=== PATIENT | female | born 1950 | race Hispanic/Latino ===

== ENCOUNTER 2017-11-29 00:21 | Inpatient (IN) | payer MEDICAID, OTHER ==
[~2017-11-29] VITALS: Ht 154.9 cm; Wt 73.3 kg
[~2017-11-29 00:21] MED LIST: AMOX500T2 PO; ATOR10TA69 PO; CARV12.511 PO; CHOL500050 PO; CLON0.2T PO; FOSI40TA2 PO; FURO20TA4 PO; GLIP10TA9 PO
[2017-11-29] MEDS ORDERED: NITROGLYCERIN 1GM/1 INCH PACKET TD ONE (01:00)
[2017-11-29] MEDS ORDERED: FUROSEMIDE 10 MG/ML 2ML VIAL ONE ×2 (01:00→08:03)
[2017-11-29 01:03] LABS: BASOPHILS % (AUTO) 0.6 % (0.0-5.0); EOSINOPHILS % (AUTO) 0.1 % (0.0-8.0); HEMATOCRIT 34.4 % (36-48); LYMPHOCYTES % (AUTO) 3.8 % (21.0-51.0); MEAN CORPUSCULAR HEMOGLOBIN 29.3 pg (27.0-33.0); MEAN CORPUSCULAR HGB CONC 32.7 g/dL (32.0-36.0); MEAN CORPUSCULAR VOLUME 89.7 fL (79-99); MONOCYTES % (AUTO) 3.9 % (3.0-13.0); NEUTROPHILS % (AUTO) 91.6 % (40.0-77.0); PLATELET COUNT (AUTO) 252 K/uL (130-400); RED BLOOD CELL COUNT(AUTO) 3.84 MIL/uL (4.00-5.50); RED CELL DISTRIBUTION WIDTH 13.9 % (11.0-15.5)
[2017-11-29 01:16] LABS: CREATININE 3.1 mg/dL (0.5-1.5)
[2017-11-29 01:37] LABS: BILIRUBIN,TOTAL 0.3 mg/dL (0.2-1.0); TOTAL PROTEIN, SERUM 6.3 g/dL (6.0-8.3)
[2017-11-29] MEDS ORDERED: CEFTRIAXONE SODIUM 1 GM ONE (01:41)
[2017-11-29 01:43] LABS: CREATINE KINASE MB 5.2 ng/mL (0.5-3.6)
[2017-11-29] MEDS ORDERED: ONDANSETRON HCL 4 MG/2 ML VIAL IV PRN (03:15)
[2017-11-29] MEDS: CEFTRIAXONE 1GM/D5W 50ML 50 ML IV SCH (03:15)
[2017-11-29] MEDS: AZITHROMYCIN 500MG+NS 250ML 250 ML IV SCH (03:15)
[2017-11-29] MEDS ORDERED: HYDRALAZINE HCL 20 MG/ML VIAL ONE ×3 (05:18→20:53)
[2017-11-29] MEDS ORDERED: AZITHROMYCIN 500MG+NS 250ML 250 ML IV ONE (05:18)
[2017-11-29] MEDS ORDERED: IPRATROPIUM/ALBUTEROL SULFATE 3 ML SOLUTION IH ONE ×2 (06:02→12:04)
[2017-11-29] MEDS: IPRATROPIUM/ALBUTEROL SULFATE 3 ML SOLUTION IH SCH ×3 (06:08→18:28)
[2017-11-29 06:20] LABS: CREATINE KINASE MB 5.3 ng/mL (0.5-3.6); TROPONIN I 0.18 ng/mL (0.00-0.06)
[2017-11-29] MEDS ORDERED: ONDANSETRON HCL 4 MG/2 ML VIAL ONE (08:02)
[2017-11-29] MEDS ORDERED: PANTOPRAZOLE SODIUM 40 MG TABLET.DR PO ONE (08:03)
[2017-11-29] MEDS: PANTOPRAZOLE SODIUM 40 MG TABLET.DR PO SCH (09:00)
[2017-11-29] MEDS: FUROSEMIDE 10 MG/ML 2ML VIAL IV SCH (09:00)
[2017-11-29 10:18] LABS: CREATINE KINASE MB 4.7 ng/mL (0.5-3.6); TROPONIN I 0.2 ng/mL (0.00-0.06)
[2017-11-29] MEDS ORDERED: ACETAMINOPHEN 325 MG TAB ONE ×2 (12:26→20:54)
[2017-11-29 21:57] VITALS: BP 158/68
[2017-11-30] VITALS (7 sets, daily range): BP systolic 141–175; BP diastolic 57–79
[2017-11-30] MEDS: IPRATROPIUM/ALBUTEROL SULFATE 3 ML SOLUTION IH SCH ×4 (00:03→19:07)
[2017-11-30] MEDS ORDERED: HYDR-4153 PO (00:27)
[2017-11-30] MEDS ORDERED: CEFTRIAXONE SODIUM 1 GM ONE (02:05)
[2017-11-30] MEDS: AZITHROMYCIN 500MG+NS 250ML 250 ML IV SCH (02:43)
[2017-11-30] MEDS: CEFTRIAXONE 1GM/D5W 50ML 50 ML IV SCH (02:44)
[2017-11-30 04:43] LABS: CREATINE KINASE MB 2.1 ng/mL (0.5-3.6)
[2017-11-30] MEDS: FUROSEMIDE 10 MG/ML 2ML VIAL IV SCH (11:31)
[2017-11-30] MEDS: PANTOPRAZOLE SODIUM 40 MG TABLET.DR PO SCH (11:32)
[2017-11-30] MEDS ORDERED: DEXTROSE 50%-WATER 50 ML DISP.SYRIN IV PRN (18:00)
[2017-11-30] MEDS ORDERED: GLUCAGON 1MG KIT 1 MG ML IM PRN (18:00)
[2017-11-30] MEDS: INSULIN HUMULIN R 100 UNIT/ML 3ML SQ SCH (21:57)
[2017-11-30] MEDS: HYDRALAZINE HCL 20 MG/ML VIAL IV PRN (23:51)
[2017-12-01] MEDS: IPRATROPIUM/ALBUTEROL SULFATE 3 ML SOLUTION IH SCH ×5 (00:36→23:32)
[2017-12-01] MEDS: CEFTRIAXONE SODIUM 1 GM IVP SCH (02:57)
[2017-12-01] MEDS: AZITHROMYCIN 500MG+NS 250ML 250 ML IV SCH (02:58)
[2017-12-01] MEDS: ACETAMINOPHEN 325 MG TAB PO PRN (03:35)
[2017-12-01 03:47] LABS: HEMATOCRIT 29.2 % (36-48); MEAN CORPUSCULAR HEMOGLOBIN 29.1 pg (27.0-33.0); MEAN CORPUSCULAR HGB CONC 33.1 g/dL (32.0-36.0); MEAN CORPUSCULAR VOLUME 88.1 fL (79-99); PLATELET COUNT (AUTO) 240 K/uL (130-400); RED BLOOD CELL COUNT(AUTO) 3.32 MIL/uL (4.00-5.50); RED CELL DISTRIBUTION WIDTH 13.5 % (11.0-15.5); WHITE BLOOD COUNT (AUTO) 5.4 K/uL (4.8-10.8)
[2017-12-01 03:51] VITALS: BP 154/95
[2017-12-01 04:17] LABS: POTASSIUM 4.5 mmol/L (3.5-5.1)
[2017-12-01 04:46] LABS: BAND NEUTROPHILS % (MANUAL) 3 % (0-2); EOSINOPHILS % (MANUAL) 2 % (1-6); LYMPHOCYTES % (MANUAL) 22 % (22-44); MAN.DIFF COMMENT-IMPRESSION MANUAL DIFFERENTIAL; MONOCYTES % (MANUAL) 2 % (2-9); PLATELET MORPHOLOGY COMMENT ADEQUATE; SEGMENTED NEUTROPHILS % 71 % (40-70)
[2017-12-01] MEDS: INSULIN HUMULIN R 100 UNIT/ML 3ML SQ SCH ×4 (05:55→21:47)
[2017-12-01 07:00] VITALS: BP 165/71
[2017-12-01] MEDS: PANTOPRAZOLE SODIUM 40 MG TABLET.DR PO SCH (10:08)
[2017-12-01] MEDS: FUROSEMIDE 10 MG/ML 2ML VIAL IV SCH (10:09)
[2017-12-01 11:00] VITALS: BP 143/67
[2017-12-01 15:41] VITALS: BP 208/80
[2017-12-01] MEDS: HYDRALAZINE HCL 20 MG/ML VIAL IV PRN ×2 (16:56→21:37)
[2017-12-01] MEDS: GUAIFENESIN SUGAR-FREE 100 MG/5 ML UDCUP PO PRN (17:04)
[2017-12-01 19:58] VITALS: BP 167/74
[2017-12-02] VITALS (7 sets, daily range): BP systolic 150–184; BP diastolic 56–83
[2017-12-02] MEDS: CEFTRIAXONE SODIUM 1 GM IVP SCH (02:16)
[2017-12-02] MEDS: AZITHROMYCIN 500MG+NS 250ML 250 ML IV SCH (02:16)
[2017-12-02 03:51] LABS: MEAN CORPUSCULAR HEMOGLOBIN 28.9 pg (27.0-33.0); MEAN CORPUSCULAR HGB CONC 33.1 g/dL (32.0-36.0); MEAN CORPUSCULAR VOLUME 87.5 fL (79-99); PLATELET COUNT (AUTO) 236 K/uL (130-400); RED BLOOD CELL COUNT(AUTO) 3.32 MIL/uL (4.00-5.50); RED CELL DISTRIBUTION WIDTH 13.8 % (11.0-15.5); WHITE BLOOD COUNT (AUTO) 4.8 K/uL (4.8-10.8)
[2017-12-02 04:13] LABS: ALBUMIN 1.5 g/dL (3.5-5.0); BILIRUBIN,TOTAL 0.2 mg/dL (0.2-1.0); CREATININE 4.2 mg/dL (0.5-1.5); POTASSIUM 4.9 mmol/L (3.5-5.1); TOTAL PROTEIN, SERUM 5.4 g/dL (6.0-8.3)
[2017-12-02] MEDS: ACETAMINOPHEN 325 MG TAB PO PRN (04:30)
[2017-12-02] MEDS: IPRATROPIUM/ALBUTEROL SULFATE 3 ML SOLUTION IH SCH ×4 (06:16→23:49)
[2017-12-02] MEDS: INSULIN HUMULIN R 100 UNIT/ML 3ML SQ SCH ×4 (06:18→21:00)
[2017-12-02] MEDS: HYDRALAZINE HCL 20 MG/ML VIAL IV PRN ×3 (08:35→23:51)
[2017-12-02] MEDS: PANTOPRAZOLE SODIUM 40 MG TABLET.DR PO SCH (08:35)
[2017-12-02] MEDS: FUROSEMIDE 10 MG/ML 2ML VIAL IV SCH ×4 (08:36→22:07)
[2017-12-02] MEDS ORDERED: AMLODIPINE BESYLATE 5 MG TAB PO SCH (11:15)
[2017-12-02] MEDS: ATORVASTATIN CALCIUM 20 MG TABLET PO SCH (11:53)
[2017-12-02] MEDS: CLOPIDOGREL BISULFATE 75 MG TAB PO SCH (11:54)
[2017-12-02] MEDS: METOPROLOL TARTRATE 25 MG TAB PO SCH ×2 (12:05→22:05)
[2017-12-02 18:30] LABS: APPEARANCE,URINE Clear (CLEAR); BILIRUBIN,URINE Negative (NEGATIVE); COLOR,URINE Yellow (YELLOW); GLUCOSE, URINE (UA) 500 mg/dL (NEGATIVE); KETONES,URINE Negative (NEGATIVE); LEUKOCYTE ESTERASE ,URINE Negative (NEGATIVE); NITRATE,URINE Negative (NEGATIVE); OCCULT BLOOD,URINE Trace (NEGATIVE); PROTEIN,URINE >=1000 (NEGATIVE); UROBILINOGEN,URINE 0.2 mg/dL (0.2-1.0)
[2017-12-02 19:48] LABS: BACTERIA,URINE Rare /HPF (None Seen); RBC,URINE 0-1 /HPF (0-1); SQUAMOUS EPITHELIAL CELL,UR Rare /LPF (0-2); WBC,URINE 0-1 /HPF (0-1)
[2017-12-02 19:49] LABS: COARSE GRANULAR CASTS,URINE 0-2 /LPF (None Seen)
[2017-12-02] MEDS: GUAIFENESIN SUGAR-FREE 100 MG/5 ML UDCUP PO PRN (23:52)
[2017-12-03] VITALS (7 sets, daily range): BP systolic 116–168; BP diastolic 64–115
[2017-12-03] MEDS: AZITHROMYCIN 500MG+NS 250ML 250 ML IV SCH (02:31)
[2017-12-03] MEDS: CEFTRIAXONE SODIUM 1 GM IVP SCH (02:31)
[2017-12-03 04:18] LABS: HEMATOCRIT 30.5 % (36-48); MEAN CORPUSCULAR HEMOGLOBIN 29.2 pg (27.0-33.0); MEAN CORPUSCULAR HGB CONC 33.4 g/dL (32.0-36.0); MEAN CORPUSCULAR VOLUME 87.5 fL (79-99); PLATELET COUNT (AUTO) 288 K/uL (130-400); RED BLOOD CELL COUNT(AUTO) 3.48 MIL/uL (4.00-5.50); RED CELL DISTRIBUTION WIDTH 13.7 % (11.0-15.5); WHITE BLOOD COUNT (AUTO) 6.2 K/uL (4.8-10.8)
[2017-12-03 04:28] LABS: CREATININE 4.1 mg/dL (0.5-1.5); POTASSIUM 4.8 mmol/L (3.5-5.1)
[2017-12-03 04:39] LABS: % IRON SATURATION 25.5 % (22-44)
[2017-12-03 05:05] LABS: BAND NEUTROPHILS % (MANUAL) 2 % (0-2); BASOPHILS % (MANUAL) 1 % (0-2); EOSINOPHILS % (MANUAL) 4 % (1-6); LYMPHOCYTES % (MANUAL) 18 % (22-44); MAN.DIFF COMMENT-IMPRESSION MANUAL DIFFERENTIAL; MONOCYTES % (MANUAL) 8 % (2-9); PLATELET MORPHOLOGY COMMENT ADEQUATE; SEGMENTED NEUTROPHILS % 67 % (40-70)
[2017-12-03] MEDS ORDERED: SODIUM CHLORIDE 3% FOR INHALATION 4 ML/AMP VIAL.NEB IH ONE (06:09)
[2017-12-03] MEDS: INSULIN HUMULIN R 100 UNIT/ML 3ML SQ SCH ×3 (06:26→22:08)
[2017-12-03] MEDS: IPRATROPIUM/ALBUTEROL SULFATE 3 ML SOLUTION IH SCH ×3 (06:42→18:10)
[2017-12-03] MEDS: CLOPIDOGREL BISULFATE 75 MG TAB PO SCH (08:34)
[2017-12-03] MEDS: FOLIC ACID/VITAMIN B COMP W-C 1 MG CAPSULE PO SCH (08:34)
[2017-12-03] MEDS: METOPROLOL TARTRATE 25 MG TAB PO SCH ×2 (08:35→22:11)
[2017-12-03] MEDS: ATORVASTATIN CALCIUM 20 MG TABLET PO SCH (08:35)
[2017-12-03] MEDS: PANTOPRAZOLE SODIUM 40 MG TABLET.DR PO SCH (08:35)
[2017-12-03] MEDS: FUROSEMIDE 10 MG/ML 2ML VIAL IV SCH ×4 (08:36→23:30)
[2017-12-03] MEDS: GUAIFENESIN SUGAR-FREE 100 MG/5 ML UDCUP PO PRN (22:11)
[2017-12-03] MEDS: AMLODIPINE BESYLATE 5 MG TAB PO SCH (22:11)
[2017-12-03] MEDS: ACETAMINOPHEN 325 MG TAB PO PRN (22:28)
[2017-12-04] MEDS: IPRATROPIUM/ALBUTEROL SULFATE 3 ML SOLUTION IH SCH ×4 (00:41→19:36)
[2017-12-04 03:00] VITALS: BP 147/59
[2017-12-04] MEDS: AZITHROMYCIN 500MG+NS 250ML 250 ML IV SCH (03:40)
[2017-12-04] MEDS: CEFTRIAXONE SODIUM 1 GM IVP SCH (03:40)
[2017-12-04 05:42] LABS: HEMATOCRIT 30.9 % (36-48); MEAN CORPUSCULAR HEMOGLOBIN 29.4 pg (27.0-33.0); MEAN CORPUSCULAR HGB CONC 33.5 g/dL (32.0-36.0); MEAN CORPUSCULAR VOLUME 87.5 fL (79-99); PLATELET COUNT (AUTO) 300 K/uL (130-400); RED BLOOD CELL COUNT(AUTO) 3.53 MIL/uL (4.00-5.50); RED CELL DISTRIBUTION WIDTH 13.4 % (11.0-15.5); WHITE BLOOD COUNT (AUTO) 7.2 K/uL (4.8-10.8)
[2017-12-04 06:24] LABS: LYMPHOCYTES % (MANUAL) 12 % (22-44); MAN.DIFF COMMENT-IMPRESSION MANUAL DIFFERENTIAL; MONOCYTES % (MANUAL) 6 % (2-9); PLATELET MORPHOLOGY COMMENT ADEQUATE; REACTIVE LYMPHOCYTES 2 % (0-0); SEGMENTED NEUTROPHILS % 80 % (40-70)
[2017-12-04] MEDS: INSULIN HUMULIN R 100 UNIT/ML 3ML SQ SCH ×4 (06:40→23:28)
[2017-12-04 08:35] VITALS: BP 138/58
[2017-12-04] MEDS: FOLIC ACID/VITAMIN B COMP W-C 1 MG CAPSULE PO SCH (09:31)
[2017-12-04] MEDS: GUAIFENESIN SUGAR-FREE 100 MG/5 ML UDCUP PO PRN (09:31)
[2017-12-04] MEDS: METOPROLOL TARTRATE 25 MG TAB PO SCH ×2 (09:32→23:31)
[2017-12-04] MEDS: PANTOPRAZOLE SODIUM 40 MG TABLET.DR PO SCH (09:32)
[2017-12-04] MEDS: AMLODIPINE BESYLATE 5 MG TAB PO SCH ×2 (09:32→23:31)
[2017-12-04] MEDS: CLOPIDOGREL BISULFATE 75 MG TAB PO SCH (09:32)
[2017-12-04] MEDS: ATORVASTATIN CALCIUM 20 MG TABLET PO SCH (09:32)
[2017-12-04] MEDS: FUROSEMIDE 10 MG/ML 2ML VIAL IV SCH ×3 (09:33→23:31)
[2017-12-04 12:00] VITALS: BP 133/54
[2017-12-04 16:00] VITALS: BP 152/64
[2017-12-04 19:15] VITALS: BP 129/65
[2017-12-04 23:10] VITALS: BP 182/74
[2017-12-05] VITALS (7 sets, daily range): BP systolic 128–161; BP diastolic 49–71
[2017-12-05] MEDS: IPRATROPIUM/ALBUTEROL SULFATE 3 ML SOLUTION IH SCH ×4 (00:25→18:41)
[2017-12-05] MEDS: AZITHROMYCIN 500MG+NS 250ML 250 ML IV SCH (04:32)
[2017-12-05] MEDS: CEFTRIAXONE SODIUM 1 GM IVP SCH (04:32)
[2017-12-05 05:05] LABS: HEMATOCRIT 26.8 % (36-48); MEAN CORPUSCULAR HEMOGLOBIN 30.3 pg (27.0-33.0); MEAN CORPUSCULAR HGB CONC 34.6 g/dL (32.0-36.0); MEAN CORPUSCULAR VOLUME 87.5 fL (79-99); PLATELET COUNT (AUTO) 271 K/uL (130-400); RED BLOOD CELL COUNT(AUTO) 3.07 MIL/uL (4.00-5.50); RED CELL DISTRIBUTION WIDTH 13.6 % (11.0-15.5); WHITE BLOOD COUNT (AUTO) 5.6 K/uL (4.8-10.8)
[2017-12-05 05:13] LABS: CREATININE 4.3 mg/dL (0.5-1.5); POTASSIUM 4.9 mmol/L (3.5-5.1)
[2017-12-05 05:17] LABS: BAND NEUTROPHILS % (MANUAL) 4 % (0-2); EOSINOPHILS % (MANUAL) 1 % (1-6); LYMPHOCYTES % (MANUAL) 16 % (22-44); MAN.DIFF COMMENT-IMPRESSION MANUAL DIFFERENTIAL; MONOCYTES % (MANUAL) 5 % (2-9); SEGMENTED NEUTROPHILS % 74 % (40-70)
[2017-12-05] MEDS: INSULIN HUMULIN R 100 UNIT/ML 3ML SQ SCH ×4 (06:35→21:05)
[2017-12-05] MEDS: AMLODIPINE BESYLATE 5 MG TAB PO SCH ×2 (09:14→21:09)
[2017-12-05] MEDS: PANTOPRAZOLE SODIUM 40 MG TABLET.DR PO SCH (09:14)
[2017-12-05] MEDS: FOLIC ACID/VITAMIN B COMP W-C 1 MG CAPSULE PO SCH (09:14)
[2017-12-05] MEDS: FUROSEMIDE 10 MG/ML 2ML VIAL IV SCH ×2 (09:14→21:08)
[2017-12-05] MEDS: ATORVASTATIN CALCIUM 20 MG TABLET PO SCH (09:14)
[2017-12-05] MEDS: METOPROLOL TARTRATE 25 MG TAB PO SCH ×2 (09:15→21:09)
[2017-12-05] MEDS: CLOPIDOGREL BISULFATE 75 MG TAB PO SCH (09:15)
[2017-12-05] MEDS: GUAIFENESIN SUGAR-FREE 100 MG/5 ML UDCUP PO PRN ×2 (09:22→21:17)
[2017-12-06 03:00] VITALS: BP 126/54
[2017-12-06 04:08] LABS: HEMATOCRIT 26.6 % (36-48); MEAN CORPUSCULAR HEMOGLOBIN 29.7 pg (27.0-33.0); MEAN CORPUSCULAR VOLUME 87.2 fL (79-99); PLATELET COUNT (AUTO) 299 K/uL (130-400); RED BLOOD CELL COUNT(AUTO) 3.05 MIL/uL (4.00-5.50); RED CELL DISTRIBUTION WIDTH 13.5 % (11.0-15.5); WHITE BLOOD COUNT (AUTO) 6.2 K/uL (4.8-10.8)
[2017-12-06] MEDS: CEFTRIAXONE SODIUM 1 GM IVP SCH (04:29)
[2017-12-06 04:35] LABS: CREATININE 4.6 mg/dL (0.5-1.5)
[2017-12-06] MEDS: IPRATROPIUM/ALBUTEROL SULFATE 3 ML SOLUTION IH SCH ×5 (06:48→23:29)
[2017-12-06] MEDS: INSULIN HUMULIN R 100 UNIT/ML 3ML SQ SCH ×4 (07:30→21:00)
[2017-12-06 08:00] VITALS: BP 151/62
[2017-12-06] MEDS: AMLODIPINE BESYLATE 5 MG TAB PO SCH ×2 (09:00→13:47)
[2017-12-06] MEDS: METOPROLOL TARTRATE 25 MG TAB PO SCH ×2 (09:00→13:47)
[2017-12-06] MEDS: FUROSEMIDE 10 MG/ML 2ML VIAL IV SCH ×2 (09:00→21:30)
[2017-12-06 11:00] VITALS: BP 167/67
[2017-12-06] MEDS ORDERED: REGADENOSON 0.4 MG/5 ML PF SYG IVP SCH (11:00)
[2017-12-06] MEDS: FOLIC ACID/VITAMIN B COMP W-C 1 MG CAPSULE PO SCH ×2 (13:46→13:47)
[2017-12-06] MEDS: ATORVASTATIN CALCIUM 20 MG TABLET PO SCH (13:46)
[2017-12-06] MEDS: PANTOPRAZOLE SODIUM 40 MG TABLET.DR PO SCH (13:47)
[2017-12-06] MEDS: CLOPIDOGREL BISULFATE 75 MG TAB PO SCH (13:47)
[2017-12-06 16:00] VITALS: BP 166/61
[2017-12-06 19:50] VITALS: BP 154/63
[2017-12-06 23:23] VITALS: BP 154/64
[2017-12-07] MEDS: METOPROLOL TARTRATE 25 MG TAB PO SCH ×3 (00:25→22:10)
[2017-12-07] MEDS: AMLODIPINE BESYLATE 5 MG TAB PO SCH ×3 (00:26→22:10)
[2017-12-07] MEDS: GUAIFENESIN SUGAR-FREE 100 MG/5 ML UDCUP PO PRN ×2 (02:22→22:37)
[2017-12-07] MEDS: ACETAMINOPHEN 325 MG TAB PO PRN (02:23)
[2017-12-07 03:23] VITALS: BP 144/56
[2017-12-07] MEDS: CEFTRIAXONE SODIUM 1 GM IVP SCH (04:20)
[2017-12-07] MEDS: INSULIN HUMULIN R 100 UNIT/ML 3ML SQ SCH ×4 (06:02→22:15)
[2017-12-07 07:11] LABS: HEMATOCRIT 26.8 % (36-48); MEAN CORPUSCULAR HEMOGLOBIN 29.7 pg (27.0-33.0); MEAN CORPUSCULAR HGB CONC 34.1 g/dL (32.0-36.0); MEAN CORPUSCULAR VOLUME 87.3 fL (79-99); PLATELET COUNT (AUTO) 283 K/uL (130-400); RED BLOOD CELL COUNT(AUTO) 3.07 MIL/uL (4.00-5.50); RED CELL DISTRIBUTION WIDTH 13.1 % (11.0-15.5); WHITE BLOOD COUNT (AUTO) 6.2 K/uL (4.8-10.8)
[2017-12-07] MEDS: IPRATROPIUM/ALBUTEROL SULFATE 3 ML SOLUTION IH SCH ×4 (07:17→23:20)
[2017-12-07 07:22] LABS: CREATININE 5.2 mg/dL (0.5-1.5); POTASSIUM 4.8 mmol/L (3.5-5.1)
[2017-12-07 08:00] VITALS: BP 162/59
[2017-12-07] MEDS: ATORVASTATIN CALCIUM 20 MG TABLET PO SCH (08:49)
[2017-12-07] MEDS: FOLIC ACID/VITAMIN B COMP W-C 1 MG CAPSULE PO SCH (08:49)
[2017-12-07] MEDS: PANTOPRAZOLE SODIUM 40 MG TABLET.DR PO SCH (08:49)
[2017-12-07] MEDS: CLOPIDOGREL BISULFATE 75 MG TAB PO SCH (08:49)
[2017-12-07] MEDS: FUROSEMIDE 10 MG/ML 2ML VIAL IV SCH ×2 (08:50→22:09)
[2017-12-07 11:00] VITALS: BP 150/58
[2017-12-07 16:00] VITALS: BP 141/52
[2017-12-07 20:35] VITALS: BP 159/58
[2017-12-07 23:45] VITALS: BP 149/62
[2017-12-08 03:35] VITALS: BP 148/48
[2017-12-08 03:44] LABS: HEMATOCRIT 26.7 % (36-48); MEAN CORPUSCULAR HEMOGLOBIN 29.4 pg (27.0-33.0); MEAN CORPUSCULAR HGB CONC 33.9 g/dL (32.0-36.0); MEAN CORPUSCULAR VOLUME 86.7 fL (79-99); PLATELET COUNT (AUTO) 319 K/uL (130-400); RED BLOOD CELL COUNT(AUTO) 3.08 MIL/uL (4.00-5.50); RED CELL DISTRIBUTION WIDTH 13.3 % (11.0-15.5); WHITE BLOOD COUNT (AUTO) 6.7 K/uL (4.8-10.8)
[2017-12-08 03:58] LABS: CREATININE 4.9 mg/dL (0.5-1.5); POTASSIUM 4.9 mmol/L (3.5-5.1)
[2017-12-08] MEDS: CEFTRIAXONE SODIUM 1 GM IVP SCH (04:07)
[2017-12-08] MEDS: INSULIN HUMULIN R 100 UNIT/ML 3ML SQ SCH ×4 (06:31→20:43)
[2017-12-08] MEDS: IPRATROPIUM/ALBUTEROL SULFATE 3 ML SOLUTION IH SCH ×3 (07:04→19:44)
[2017-12-08 08:00] VITALS: BP 163/67
[2017-12-08] MEDS: PANTOPRAZOLE SODIUM 40 MG TABLET.DR PO SCH (10:37)
[2017-12-08] MEDS: AMLODIPINE BESYLATE 5 MG TAB PO SCH ×2 (10:37→20:25)
[2017-12-08] MEDS: FOLIC ACID/VITAMIN B COMP W-C 1 MG CAPSULE PO SCH (10:37)
[2017-12-08] MEDS: CLOPIDOGREL BISULFATE 75 MG TAB PO SCH (10:38)
[2017-12-08] MEDS: FUROSEMIDE 10 MG/ML 2ML VIAL IV SCH ×2 (10:38→20:25)
[2017-12-08] MEDS: ATORVASTATIN CALCIUM 20 MG TABLET PO SCH (10:38)
[2017-12-08] MEDS: METOPROLOL TARTRATE 25 MG TAB PO SCH ×2 (10:38→20:25)
[2017-12-08] MEDS: ACETAMINOPHEN 325 MG TAB PO PRN (10:46)
[2017-12-08] MEDS: GUAIFENESIN SUGAR-FREE 100 MG/5 ML UDCUP PO PRN (10:47)
[2017-12-08 11:00] VITALS: BP 165/70
[2017-12-08 16:00] VITALS: BP 161/76
[2017-12-08 19:00] VITALS: BP 149/53
[2017-12-08 23:00] VITALS: BP 146/93
[2017-12-09] MEDS: IPRATROPIUM/ALBUTEROL SULFATE 3 ML SOLUTION IH SCH ×3 (00:12→11:01)
[2017-12-09 03:00] VITALS: BP 143/56
[2017-12-09] MEDS: CEFTRIAXONE SODIUM 1 GM IVP SCH (03:01)
[2017-12-09] MEDS: INSULIN HUMULIN R 100 UNIT/ML 3ML SQ SCH ×2 (05:53→11:30)
[2017-12-09 07:05] VITALS: BP 141/52
[2017-12-09] MEDS: AMLODIPINE BESYLATE 5 MG TAB PO SCH (09:06)
[2017-12-09] MEDS: ATORVASTATIN CALCIUM 20 MG TABLET PO SCH (09:06)
[2017-12-09] MEDS: CLOPIDOGREL BISULFATE 75 MG TAB PO SCH (09:06)
[2017-12-09] MEDS: PANTOPRAZOLE SODIUM 40 MG TABLET.DR PO SCH (09:06)
[2017-12-09] MEDS: FOLIC ACID/VITAMIN B COMP W-C 1 MG CAPSULE PO SCH (09:06)
[2017-12-09] MEDS: FUROSEMIDE 10 MG/ML 2ML VIAL IV SCH (09:07)
[2017-12-09] MEDS: METOPROLOL TARTRATE 25 MG TAB PO SCH (09:07)
[2017-12-09] MEDS: GUAIFENESIN SUGAR-FREE 100 MG/5 ML UDCUP PO PRN (09:13)
[2017-12-09] MEDS ORDERED: LACTULOSE 20 GM/30 ML UDCUP PO PRN (09:15)
[2017-12-09 09:40] LABS: EOSINOPHILS % (AUTO) 3.5 % (0.0-8.0); HEMATOCRIT 25.5 % (36-48); LYMPHOCYTES % (AUTO) 19.3 % (21.0-51.0); MEAN CORPUSCULAR HEMOGLOBIN 29.9 pg (27.0-33.0); MEAN CORPUSCULAR HGB CONC 34.3 g/dL (32.0-36.0); MEAN CORPUSCULAR VOLUME 87.2 fL (79-99); MONOCYTES % (AUTO) 10.1 % (3.0-13.0); NEUTROPHILS % (AUTO) 66.1 % (40.0-77.0); PLATELET COUNT (AUTO) 299 K/uL (130-400); RED BLOOD CELL COUNT(AUTO) 2.93 MIL/uL (4.00-5.50); RED CELL DISTRIBUTION WIDTH 13.4 % (11.0-15.5); WHITE BLOOD COUNT (AUTO) 6.9 K/uL (4.8-10.8)
[2017-12-09 09:50] LABS: CREATININE 4.9 mg/dL (0.5-1.5); POTASSIUM 4.6 mmol/L (3.5-5.1)
[2017-12-09 11:07] VITALS: BP 154/80
[2017-12-09] MEDS ORDERED: Folic Acid/Vitamin B Comp W-C PO (12:17)
[2017-12-09] MEDS ORDERED: METO25 PO (12:17)
[2017-12-09] MEDS ORDERED: PANT40TA PO (12:17)
[2017-12-09] MEDS ORDERED: FURO20TA6 PO (12:17)
[2017-12-09] MEDS ORDERED: GUAI100L26 PO (12:17)
[2017-12-09] MEDS ORDERED: CLOP75TA14 PO (12:17)
[2017-12-09] MEDS ORDERED: AMLO5TAB4 PO (12:17)
[2017-12-09] MEDS ORDERED: CEFD300C3 PO (12:17)
[2017-12-09] MEDS ORDERED: ATOR20TA65 PO (12:17)
== END 2017-12-09 13:30 | disposition home or self-care (01) | DRG 682 ==
LOC: EDH 00:21 → EDHIP 00:22 → 3BH 21:02
PROVIDERS: ADMIT Family Medicine; ATTEND Family Medicine
DX: N17.9 Acute kidney failure, unspecified (principal); J18.9 Pneumonia, unspecified organism; I13.2 Hypertensive heart and chronic kidney disease with heart failure and with stage 5 chronic kidney disease, or end stage renal disease; E11.21 Type 2 diabetes mellitus with diabetic nephropathy; I50.33 Acute on chronic diastolic (congestive) heart failure; I42.9 Cardiomyopathy, unspecified; I16.1 Hypertensive emergency; E11.51 Type 2 diabetes mellitus with diabetic peripheral angiopathy without gangrene; N18.5 Chronic kidney disease, stage 5; D64.9 Anemia, unspecified; E11.22 Type 2 diabetes mellitus with diabetic chronic kidney disease; E78.5 Hyperlipidemia, unspecified; I45.10 Unspecified right bundle-branch block; Z87.01 Personal history of pneumonia (recurrent); Z88.6 Allergy status to analgesic agent; Z91.81 History of falling
CPT/HCPCS: 36415; 71045; 76770; 78452; 80048; 80053; 81001; 82550; 82553; 82948; 83540; 83550; 83605; 83874; 83880; 84484; 85025; 85027; 87040; 87071; 87205; 87804; 93005; 93017; 93306; 94640; 94664; 96374; 99291; A4218; A9500; J0360; J0456; J0696; J1815; J1940; J2405; J2785